=== PATIENT | male | born 1990 | race Caucasian/White ===

== ENCOUNTER 2018-12-23 20:11 | Emergency (ER) | payer SELFPAY ==
[~2018-12-23] VITALS: Ht 170.1 cm; Wt 81.6 kg
== END 2018-12-23 20:50 | disposition home or self-care (01) ==
LOC: ED 20:11
DX: H10.89 Other conjunctivitis (principal); Z88.4 Allergy status to anesthetic agent; Z88.6 Allergy status to analgesic agent; Z88.8 Allergy status to other drugs, medicaments and biological substances

== ENCOUNTER 2019-05-20 18:34 | Emergency (ER) | payer SELFPAY ==
--- NOTE | ~2019-05-20 | EKG ---
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
[2019-05-20 19:46] LABS: BASO % 0.3 % (0.0-1.0); EOS # 0.1 10*3/uL (0.0-0.4); EOS % 0.3 % (1.0-4.0); HEMOGLOBIN 15.9 g/dl (14.0-18.0); LYMPH # 3.2 10*3/uL (1.3-4.4); LYMPH % 21.9 % (27.0-41.0); MEAN CELL VOLUME 89.7 fl (80.0-94.0); MEAN CORPUSCULAR HGB 30.3 pg (27.0-31.0); MEAN CORPUSCULAR HGB CONC 33.8 g/dl (33.0-37.0); MEAN PLATELET VOLUME 10.9 fl (9.6-12.3); MONO % 7.1 % (3.0-9.0); NEUT # 10.2 10*3/uL (2.3-7.9); NEUT % 70.1 % (47.0-73.0); PLATELET COUNT AUTOMATED 252 10*3/uL (130-400); RED BLOOD COUNT 5.24 10*6/uL (4.50-5.90); RED CELL DISTRI WIDTH 12.1 % (0-14.5); WHITE BLOOD COUNT 14.5 10*3/uL (4.8-10.8)
[2019-05-20 19:58] LABS: ACT PARTIAL THROMBO TIME 25.2 SECONDS (20.0-32.1)
[2019-05-20 20:02] LABS: ALBUMIN 3.9 gm/dl (3.1-4.5); ALKALINE PHOSPHATASE 99 U/L (45-117); BUN 12 mg/dl (7-24); CHLORIDE 111 mmol/L (98-107); CREATININE 1.17 mg/dL (0.70-1.30); LIPASE 70 U/L (73-393); POTASSIUM 3.7 mmol/L (3.5-5.1); SGOT/AST 18 IU/L (3-35); SGPT/ALT 36 U/L (12-78); SODIUM 145 mmol/L (136-145); TOTAL PROTEIN 7.2 gm/dL (6.4-8.2)
[2019-05-20 20:05] LABS: TROPONIN I < 0.015 ng/ml (<0.045)
[2019-05-21 00:40] LABS: BILIRUBIN NEGATIVE (NEGATIVE); BLOOD NEGATIVE (NEGATIVE); CLARITY CLEAR (CLEAR); COLOR YELLOW (YELLOW); GLUCOSE NEGATIVE (NEGATIVE); KETONE NEGATIVE (NEGATIVE); LEUKO ESTERASE NEGATIVE (NEGATIVE); NITRITE NEGATIVE (NEGATIVE); UROBILINOGEN 0.2 E.U./dl (0.2-1.0)
[2019-05-21 00:48] LABS: RBC 0-2 rbc/hpf (0-2); WBC 0-2 wbc/hpf (0-5)
[2019-05-21 00:51] LABS: URINE AMPHETAMINES < 1000 (1000ng/ml); URINE BARBITURATES < 200 (200ng/ml); URINE BENZODIAZEPINES < 200 (200ng/ml); URINE CANNABINOIDS (THC) < 50 (50ng/ml); URINE COCAINE < 300 (300ng/ml); URINE METHADONE < 300 (300ng/ml); URINE OPIATES < 300 (300ng/ml)
[2019-05-21 00:52] LABS: URINE PHENCYCLIDINE < 25 (25ng/ml)
== END 2019-05-21 01:20 | disposition home or self-care (01) ==
LOC: ED 18:34
PROVIDERS: Nurse Practitioner Family
DX: R55 Syncope and collapse (principal); F41.9 Anxiety disorder, unspecified; Z88.8 Allergy status to other drugs, medicaments and biological substances

== ENCOUNTER 2019-05-30 23:16 | Emergency (ER) | payer SELFPAY ==
[~2019-05-30] VITALS: Ht 170.1 cm; Wt 81.6 kg
[2019-05-31] MEDS ORDERED: Motrin,Rufen400 MG PO (00:31)
== END 2019-05-31 00:39 | disposition home or self-care (01) ==
LOC: ED 23:16
DX: I80.02 Phlebitis and thrombophlebitis of superficial vessels of left lower extremity (principal); Z88.8 Allergy status to other drugs, medicaments and biological substances; Z88.6 Allergy status to analgesic agent

== ENCOUNTER → 2019-05-31 | Outpatient (CLI) | payer SELFPAY ==
[~2019-05-31] MED LIST: Motrin,Rufen400 MG PO; Motrin,Rufen800 MG PO
== END | disposition home or self-care (01) ==
LOC: US 14:24
DX: I80.8 Phlebitis and thrombophlebitis of other sites (principal); M79.622 Pain in left upper arm

== ENCOUNTER 2019-06-12 12:32 | Emergency (ER) | payer SELFPAY ==
[~2019-06-12] VITALS: Ht 175.2 cm; Wt 72.6 kg
--- NOTE | ~2019-06-12 | EKG ---
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
[~2019-06-12 12:32] MED LIST changes: -Motrin,Rufen800 MG PO
[2019-06-12 13:01] LABS: BASO % 0.5 % (0.0-1.0); EOS % 0.5 % (1.0-4.0); HEMOGLOBIN 15.7 g/dl (14.0-18.0); LYMPH # 2.8 10*3/uL (1.3-4.4); LYMPH % 37.8 % (27.0-41.0); MEAN CELL VOLUME 88.3 fl (80.0-94.0); MEAN CORPUSCULAR HGB 30.1 pg (27.0-31.0); MEAN CORPUSCULAR HGB CONC 34.1 g/dl (33.0-37.0); MEAN PLATELET VOLUME 10.9 fl (9.6-12.3); MONO # 0.5 10*3/uL (0.1-1.0); MONO % 7.3 % (3.0-9.0); NEUT # 3.9 10*3/uL (2.3-7.9); NEUT % 53.6 % (47.0-73.0); PLATELET COUNT AUTOMATED 253 10*3/uL (130-400); RED BLOOD COUNT 5.21 10*6/uL (4.50-5.90); RED CELL DISTRI WIDTH 12.3 % (0-14.5); WHITE BLOOD COUNT 7.3 10*3/uL (4.8-10.8)
[2019-06-12 13:17] LABS: ALBUMIN 3.9 gm/dl (3.1-4.5); ALKALINE PHOSPHATASE 100 U/L (45-117); BUN 9 mg/dl (7-24); CHLORIDE 110 mmol/L (98-107); LIPASE 96 U/L (73-393); POTASSIUM 3.3 mmol/L (3.5-5.1); SGOT/AST 18 IU/L (3-35); SGPT/ALT 39 U/L (12-78); SODIUM 140 mmol/L (136-145); TOTAL PROTEIN 7.4 gm/dL (6.4-8.2); TROPONIN I < 0.015 ng/ml (<0.045)
[2019-06-12 13:25] LABS: ACT PARTIAL THROMBO TIME 26.3 SECONDS (20.0-32.1); INTERNATIONAL NORM RATIO 0.9 (2.0-3.5)
[2019-06-12 17:19] LABS: BILIRUBIN NEGATIVE (NEGATIVE); BLOOD NEGATIVE (NEGATIVE); CLARITY CLEAR (CLEAR); COLOR YELLOW (YELLOW); GLUCOSE NEGATIVE (NEGATIVE); KETONE NEGATIVE (NEGATIVE); LEUKO ESTERASE NEGATIVE (NEGATIVE); NITRITE NEGATIVE (NEGATIVE); SPECIFIC GRAVITY <= 1.005 (1.005-1.030); UROBILINOGEN 0.2 E.U./dl (0.2-1.0)
[2019-06-12 17:28] LABS: URINE AMPHETAMINES < 1000 (1000ng/ml); URINE BARBITURATES < 200 (200ng/ml); URINE BENZODIAZEPINES < 200 (200ng/ml); URINE CANNABINOIDS (THC) < 50 (50ng/ml); URINE COCAINE < 300 (300ng/ml); URINE METHADONE < 300 (300ng/ml); URINE OPIATES < 300 (300ng/ml)
[2019-06-12 17:31] LABS: URINE PHENCYCLIDINE < 25 (25ng/ml)
== END 2019-06-12 19:05 | disposition home or self-care (01) ==
LOC: ED 12:32
PROVIDERS: Emergency Medicine
DX: R55 Syncope and collapse (principal); R07.89 Other chest pain; R53.83 Other fatigue; R68.83 Chills (without fever); Z88.8 Allergy status to other drugs, medicaments and biological substances; Z88.6 Allergy status to analgesic agent

== ENCOUNTER 2019-08-02 09:54 | Emergency (ER) | payer SELFPAY ==
[~2019-08-02] VITALS: Wt 77.1 kg
--- NOTE | ~2019-08-02 | EKG ---
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
[2019-08-02 10:28] LABS: BASO % 0.3 % (0.0-1.0); EOS # 0.1 10*3/uL (0.0-0.4); EOS % 1.1 % (1.0-4.0); HEMOGLOBIN 15.3 g/dl (14.0-18.0); LYMPH % 19.2 % (27.0-41.0); MEAN CELL VOLUME 89.1 fl (80.0-94.0); MEAN CORPUSCULAR HGB 30.3 pg (27.0-31.0); MEAN PLATELET VOLUME 10.8 fl (9.6-12.3); MONO # 0.8 10*3/uL (0.1-1.0); MONO % 7.4 % (3.0-9.0); NEUT # 7.6 10*3/uL (2.3-7.9); NEUT % 71.7 % (47.0-73.0); PLATELET COUNT AUTOMATED 248 10*3/uL (130-400); RED BLOOD COUNT 5.05 10*6/uL (4.50-5.90); RED CELL DISTRI WIDTH 12.4 % (0-14.5); WHITE BLOOD COUNT 10.6 10*3/uL (4.8-10.8)
[2019-08-02 10:45] LABS: ALBUMIN 3.8 gm/dl (3.1-4.5); ALKALINE PHOSPHATASE 101 U/L (45-117); BUN 11 mg/dl (7-24); CHLORIDE 108 mmol/L (98-107); POTASSIUM 3.7 mmol/L (3.5-5.1); SGOT/AST 15 IU/L (3-35); SGPT/ALT 30 U/L (12-78); SODIUM 139 mmol/L (136-145)
[2019-08-02 10:46] LABS: TROPONIN I < 0.015 ng/ml (<0.045)
[2019-08-02] MEDS ORDERED: Motrin,Rufen800 MG PO (11:02)
== END 2019-08-02 11:21 | disposition home or self-care (01) ==
LOC: ED 09:54
PROVIDERS: Emergency Medicine
DX: J02.8 Acute pharyngitis due to other specified organisms (principal); B97.89 Other viral agents as the cause of diseases classified elsewhere; R21 Rash and other nonspecific skin eruption

== ENCOUNTER 2019-12-17 17:44 | Emergency (ER) | payer SELFPAY ==
[~2019-12-17] VITALS: Ht 170.1 cm; Wt 79.4 kg
[~2019-12-17 17:44] MED LIST changes: +Motrin,Rufen800 MG PO
[2019-12-17] MEDS ORDERED: CYCLOBENZAPRINE5 M3 PO (21:21)
[2019-12-17] MEDS ORDERED: Motrin,Rufen800 MG PO (21:21)
== END 2019-12-17 21:43 | disposition home or self-care (01) ==
LOC: ED 17:44
DX: S39.012A Strain of muscle, fascia and tendon of lower back, initial encounter (principal); Z88.8 Allergy status to other drugs, medicaments and biological substances; W01.0XXA Fall on same level from slipping, tripping and stumbling without subsequent striking against object, initial encounter; Y93.89 Activity, other specified; Y92.69 Other specified industrial and construction area as the place of occurrence of the external cause; Y99.8 Other external cause status

== ENCOUNTER 2019-12-31 19:19 | Emergency (ER) | payer SELFPAY ==
[~2019-12-31] VITALS: Ht 182.8 cm; Wt 82.1 kg
[~2019-12-31 19:19] MED LIST changes: +CYCLOBENZAPRINE5 M3 PO
[2019-12-31 19:54] LABS: BASO % 0.3 % (0.0-1.0); EOS # 0.1 10*3/uL (0.0-0.4); HEMATOCRIT 43.9 % (42.0-52.0); HEMOGLOBIN 14.9 g/dl (14.0-18.0); LYMPH # 1.9 10*3/uL (1.3-4.4); LYMPH % 31.7 % (27.0-41.0); MEAN CELL VOLUME 89.6 fl (80.0-94.0); MEAN CORPUSCULAR HGB 30.4 pg (27.0-31.0); MEAN CORPUSCULAR HGB CONC 33.9 g/dl (33.0-37.0); MEAN PLATELET VOLUME 10.6 fl (9.6-12.3); MONO # 0.4 10*3/uL (0.1-1.0); MONO % 5.9 % (3.0-9.0); NEUT # 3.7 10*3/uL (2.3-7.9); NEUT % 60.8 % (47.0-73.0); PLATELET COUNT AUTOMATED 243 10*3/uL (130-400); RED CELL DISTRI WIDTH 12.3 % (0-14.5); WHITE BLOOD COUNT 6.1 10*3/uL (4.8-10.8)
[2019-12-31 20:10] LABS: ALBUMIN 3.7 gm/dl (3.1-4.5); ALKALINE PHOSPHATASE 92 U/L (45-117); BUN 13 mg/dl (7-24); CHLORIDE 110 mmol/L (98-107); CREATININE 0.82 mg/dL (0.70-1.30); POTASSIUM 3.3 mmol/L (3.5-5.1); SGOT/AST 12 IU/L (3-35); SGPT/ALT 34 U/L (12-78); SODIUM 142 mmol/L (136-145); TOTAL PROTEIN 6.7 gm/dL (6.4-8.2)
== END 2019-12-31 22:13 | disposition home or self-care (01) ==
LOC: ED 19:19
PROVIDERS: Emergency Medicine Emergency Medical Services
DX: S00.03XA Contusion of scalp, initial encounter (principal); R56.9 Unspecified convulsions; Z88.8 Allergy status to other drugs, medicaments and biological substances; Z79.899 Other long term (current) drug therapy; W18.39XA Other fall on same level, initial encounter; Y93.89 Activity, other specified; Y92.69 Other specified industrial and construction area as the place of occurrence of the external cause; Y99.8 Other external cause status

== ENCOUNTER 2020-01-20 18:13 | Emergency (ER) | payer SELFPAY ==
[~2020-01-20] VITALS: Ht 172.7 cm
== END 2020-01-20 20:29 | disposition home or self-care (01) ==
LOC: ED 18:13
DX: S00.81XA Abrasion of other part of head, initial encounter (principal); Z88.8 Allergy status to other drugs, medicaments and biological substances; W18.39XA Other fall on same level, initial encounter; Y93.89 Activity, other specified; Y92.89 Other specified places as the place of occurrence of the external cause; Y99.8 Other external cause status

== ENCOUNTER 2020-09-27 20:49 | Emergency (ER) | payer OTHER ==
[~2020-09-27] VITALS: Ht 170.2 cm; Wt 81.6 kg
== END 2020-09-27 23:45 | disposition home or self-care (01) ==
LOC: ED 20:49
DX: S43.422A Sprain of left rotator cuff capsule, initial encounter (principal); Z88.8 Allergy status to other drugs, medicaments and biological substances; Z79.899 Other long term (current) drug therapy; X58.XXXA Exposure to other specified factors, initial encounter; Y93.89 Activity, other specified; Y92.89 Other specified places as the place of occurrence of the external cause; Y99.8 Other external cause status

== ENCOUNTER 2021-01-18 01:38 | Emergency (ER) | payer OTHER ==
[~2021-01-18] VITALS: Ht 170.1 cm; Wt 83.9 kg
[2021-01-18 02:15] LABS: BASO # 0.1 10*3/uL (0.0-0.1); BASO % 0.3 % (0.0-1.0); EOS # 0.1 10*3/uL (0.0-0.4); EOS % 0.3 % (1.0-4.0); LYMPH # 0.7 10*3/uL (1.3-4.4); LYMPH % 4.4 % (27.0-41.0); MEAN CELL VOLUME 87.7 fl (80.0-94.0); MEAN CORPUSCULAR HGB 29.7 pg (27.0-31.0); MEAN CORPUSCULAR HGB CONC 33.8 g/dl (33.0-37.0); MEAN PLATELET VOLUME 10.3 fl (9.6-12.3); MONO # 0.9 10*3/uL (0.1-1.0); MONO % 5.9 % (3.0-9.0); NEUT # 13.4 10*3/uL (2.3-7.9); NEUT % 88.8 % (47.0-73.0); PLATELET COUNT AUTOMATED 249 10*3/uL (130-400); RED BLOOD COUNT 5.36 10*6/uL (4.50-5.90); RED CELL DISTRI WIDTH 12.3 % (0-14.5)
[2021-01-18 02:30] LABS: ALBUMIN 3.6 gm/dl (3.1-4.5); ALKALINE PHOSPHATASE 88 U/L (45-117); BUN 14 mg/dl (7-24); CHLORIDE 110 mmol/L (98-107); LIPASE 51 U/L (73-393); POTASSIUM 3.9 mmol/L (3.5-5.1); SGOT/AST 11 IU/L (3-35); SGPT/ALT 37 U/L (12-78); SODIUM 140 mmol/L (136-145); TOTAL PROTEIN 7.1 gm/dL (6.4-8.2)
[2021-01-18] MEDS ORDERED: ZOFRAN4 MG PO (03:07)
== END 2021-01-18 03:23 | disposition home or self-care (01) ==
LOC: ED 01:38
PROVIDERS: Internal Medicine
DX: B34.9 Viral infection, unspecified (principal); Z88.8 Allergy status to other drugs, medicaments and biological substances; Z79.899 Other long term (current) drug therapy; Z20.822 Contact with and (suspected) exposure to COVID-19

== ENCOUNTER 2021-03-10 17:12 | Emergency (ER) | payer OTHER ==
[~2021-03-10] VITALS: Ht 170.1 cm; Wt 83.9 kg
[~2021-03-10 17:12] MED LIST changes: +ZOFRAN4 MG PO
== END 2021-03-10 19:11 | disposition home or self-care (01) ==
LOC: ED 17:12
DX: S92.531A Displaced fracture of distal phalanx of right lesser toe(s), initial encounter for closed fracture (principal); Z88.8 Allergy status to other drugs, medicaments and biological substances; Z79.899 Other long term (current) drug therapy; W22.09XA Striking against other stationary object, initial encounter; Y93.89 Activity, other specified; Y92.89 Other specified places as the place of occurrence of the external cause; Y99.8 Other external cause status

== ENCOUNTER 2021-04-30 21:22 | Emergency (ER) | payer OTHER ==
[~2021-04-30] VITALS: Ht 170.1 cm; Wt 83.9 kg
[2021-04-30] MEDS ORDERED: MEDROL DOSEPAK4 MG PO (21:58)
== END 2021-04-30 22:18 | disposition home or self-care (01) ==
LOC: ED 21:22
DX: L23.9 Allergic contact dermatitis, unspecified cause (principal); Z88.8 Allergy status to other drugs, medicaments and biological substances; Z79.899 Other long term (current) drug therapy

== ENCOUNTER 2021-05-16 19:11 | Emergency (ER) | payer OTHER ==
[~2021-05-16] VITALS: Wt 83.9 kg
[~2021-05-16 19:11] MED LIST changes: +MEDROL DOSEPAK4 MG PO
== END 2021-05-16 22:04 | disposition home or self-care (01) ==
LOC: ED 19:11
DX: R51.9 Headache, unspecified (principal); Z88.8 Allergy status to other drugs, medicaments and biological substances; Z79.899 Other long term (current) drug therapy

== ENCOUNTER 2021-09-02 21:26 | Emergency (ER) | payer OTHER ==
[~2021-09-02] VITALS: Ht 170.1 cm; Wt 88.5 kg
[2021-09-02] MEDS ORDERED: AMITRIPTYLINE25 MG PO (21:40)
[2021-09-02] MEDS ORDERED: LEXAPRO5 M1 PO (21:40)
== END 2021-09-03 05:28 | disposition home or self-care (01) ==
LOC: ED 21:26
DX: U07.1 COVID-19 (principal)

== ENCOUNTER 2021-09-05 12:22 | Emergency (ER) | payer OTHER ==
[~2021-09-05] VITALS: Ht 172.7 cm; Wt 77.1 kg
[~2021-09-05 12:22] MED LIST changes: +AMITRIPTYLINE25 MG PO; +LEXAPRO5 M1 PO
[2021-09-05 13:26] LABS: BASO % 0.1 % (0.0-1.0); EOS % 0.4 % (1.0-4.0); HEMATOCRIT 45.2 % (42.0-52.0); LYMPH # 1.3 10*3/uL (1.3-4.4); LYMPH % 19.3 % (27.0-41.0); MEAN CELL VOLUME 87.1 fl (80.0-94.0); MEAN CORPUSCULAR HGB 29.5 pg (27.0-31.0); MEAN CORPUSCULAR HGB CONC 33.8 g/dl (33.0-37.0); MEAN PLATELET VOLUME 10.2 fl (9.6-12.3); MONO # 0.8 10*3/uL (0.1-1.0); MONO % 11.4 % (3.0-9.0); NEUT # 4.7 10*3/uL (2.3-7.9); NEUT % 68.5 % (47.0-73.0); PLATELET COUNT AUTOMATED 226 10*3/uL (130-400); RED BLOOD COUNT 5.19 10*6/uL (4.50-5.90); RED CELL DISTRI WIDTH 12.3 % (0-14.5); WHITE BLOOD COUNT 6.9 10*3/uL (4.8-10.8)
[2021-09-05 13:41] LABS: ALBUMIN 3.6 gm/dl (3.1-4.5); ALKALINE PHOSPHATASE 88 U/L (45-117); BUN 12 mg/dl (7-24); CHLORIDE 104 mmol/L (98-107); CREATININE 1.09 mg/dL (0.70-1.30); POTASSIUM 3.3 mmol/L (3.5-5.1); SGOT/AST 20 IU/L (3-35); SGPT/ALT 49 U/L (12-78); SODIUM 137 mmol/L (136-145); TOTAL PROTEIN 7.1 gm/dL (6.4-8.2)
[2021-09-05 15:30] LABS: BILIRUBIN Negative (Negative); BLOOD Negative (Negative); CLARITY Clear (Clear); COLOR Yellow (Yellow); GLUCOSE Negative (Negative); KETONE 3+ (Negative); LEUKO ESTERASE Negative (Negative); NITRITE Negative (Negative); PH 6.5 (4.5-8.0)
[2021-09-05 15:43] LABS: BACTERIA TRACE; EPITHELIAL CELLS 0-2; RBC 0-2 rbc/hpf (0-2); WBC 0-2 wbc/hpf (0-5)
== END 2021-09-05 17:31 | disposition home or self-care (01) ==
LOC: ED 12:22
PROVIDERS: Physician Assistant
DX: M54.50 Low back pain, unspecified (principal); Z79.899 Other long term (current) drug therapy

== ENCOUNTER 2022-02-28 18:33 | Emergency (ER) | payer OTHER ==
[~2022-02-28] VITALS: Ht 170.1 cm; Wt 86.2 kg
== END 2022-02-28 23:03 | disposition home or self-care (01) ==
LOC: ED 18:33
DX: S90.31XA Contusion of right foot, initial encounter (principal); S97.81XA Crushing injury of right foot, initial encounter; Z88.8 Allergy status to other drugs, medicaments and biological substances; Z79.899 Other long term (current) drug therapy; W11.XXXA Fall on and from ladder, initial encounter; Y93.89 Activity, other specified; Y92.89 Other specified places as the place of occurrence of the external cause; Y99.8 Other external cause status

== ENCOUNTER → 2022-05-26 | Outpatient (CLI) | payer OTHER | END | disposition home or self-care (01) | LOC: COVID19 08:23 | PROVIDERS: ATTEND Internal Medicine | DX: U07.1 COVID-19 (principal) ==

== ENCOUNTER 2023-02-04 19:01 | Emergency (ER) | payer OTHER ==
[~2023-02-04] VITALS: Ht 170.1 cm; Wt 88.5 kg
[2023-02-04] MEDS ORDERED: LISINOPRIL5 MG PO (19:21)
[2023-02-04 19:47] LABS: BASO # 0.1 10*3/uL (0.0-0.1); BASO % 0.3 % (0.0-1.0); EOS % 0.2 % (1.0-4.0); HEMATOCRIT 46.1 % (42.0-52.0); LYMPH # 1.8 10*3/uL (1.3-4.4); LYMPH % 12.8 % (27.0-41.0); MEAN CORPUSCULAR HGB 29.8 pg (27.0-31.0); MEAN CORPUSCULAR HGB CONC 34.3 g/dl (33.0-37.0); MEAN PLATELET VOLUME 10.3 fl (9.6-12.3); MONO # 0.9 10*3/uL (0.1-1.0); MONO % 5.9 % (3.0-9.0); NEUT # 11.6 10*3/uL (2.3-7.9); NEUT % 80.5 % (47.0-73.0); PLATELET COUNT AUTOMATED 264 10*3/uL (130-400); RED CELL DISTRI WIDTH 12.2 % (0-14.5); WHITE BLOOD COUNT 14.4 10*3/uL (4.8-10.8)
[2023-02-04 20:04] LABS: ALKALINE PHOSPHATASE 91 U/L (46-116); BUN 11 mg/dl (9-23); CHLORIDE 103 mmol/L (98-107); POTASSIUM 3.4 mmol/L (3.4-5.1); SGPT/ALT 39 U/L (10-49); THYROID STIM HORMONE (HS) 1.901 uIU/ml (0.550-4.780)
[2023-02-04] MEDS ORDERED: Meclizine25 MG PO (20:18)
== END 2023-02-04 20:54 | disposition home or self-care (01) ==
LOC: ED 19:01
PROVIDERS: Emergency Medicine
DX: B34.9 Viral infection, unspecified (principal); R55 Syncope and collapse; Z88.8 Allergy status to other drugs, medicaments and biological substances; Z79.899 Other long term (current) drug therapy

== ENCOUNTER 2023-11-15 23:09 | Emergency (ER) | payer OTHER ==
[~2023-11-15] VITALS: Ht 170.1 cm; Wt 90.7 kg
[~2023-11-15 23:09] MED LIST changes: +LISINOPRIL5 MG PO; +Meclizine25 MG PO
== END 2023-11-16 00:59 | disposition home or self-care (01) ==
LOC: ED 23:09
DX: U07.1 COVID-19 (principal); Z88.8 Allergy status to other drugs, medicaments and biological substances; Z88.6 Allergy status to analgesic agent

== ENCOUNTER 2024-02-03 21:31 | Emergency (ER) | payer OTHER ==
[2024-02-03] MEDS ORDERED: Dexamethasone Sodium Phospha 20 MG/5 ML VIAL IM ONE (22:35)
[2024-02-03 22:59] LABS: BASO % 0.4 % (0.0-1.0); EOS # 0.1 10*3/uL (0.0-0.4); HEMATOCRIT 44.4 % (42.0-52.0); LYMPH # 3.5 10*3/uL (1.3-4.4); LYMPH % 35.4 % (27.0-41.0); MEAN CELL VOLUME 88.8 fl (80.0-94.0); MEAN CORPUSCULAR HGB 29.8 pg (27.0-31.0); MEAN CORPUSCULAR HGB CONC 33.6 g/dl (33.0-37.0); MEAN PLATELET VOLUME 10.3 fl (9.6-12.3); MONO # 0.8 10*3/uL (0.1-1.0); MONO % 7.8 % (3.0-9.0); NEUT # 5.5 10*3/uL (2.3-7.9); NEUT % 55.3 % (47.0-73.0); PLATELET COUNT AUTOMATED 257 10*3/uL (130-400); RED CELL DISTRI WIDTH 12.5 % (0-14.5); WHITE BLOOD COUNT 9.9 10*3/uL (4.8-10.8)
[2024-02-03 23:24] LABS: BUN 12 mg/dl (9-23); CHLORIDE 106 mmol/L (98-107); LIPASE 35 U/L (12-53); POTASSIUM 3.6 mmol/L (3.4-5.1)
[2024-02-04] MEDS ORDERED: PREDNISONE50 MG PO (00:28)
== END 2024-02-04 00:35 | disposition home or self-care (01) ==
LOC: ED 21:31
PROVIDERS: Internal Medicine
DX: S29.011A Strain of muscle and tendon of front wall of thorax, initial encounter (principal); M25.512 Pain in left shoulder; R42 Dizziness and giddiness; R51.9 Headache, unspecified; M54.9 Dorsalgia, unspecified; Z88.8 Allergy status to other drugs, medicaments and biological substances; Z79.899 Other long term (current) drug therapy; X58.XXXA Exposure to other specified factors, initial encounter; Y93.89 Activity, other specified; Y92.89 Other specified places as the place of occurrence of the external cause; Y99.8 Other external cause status

== ENCOUNTER 2024-05-29 23:45 | Emergency (ER) | payer SELFPAY ==
[~2024-05-29] VITALS: Ht 170.1 cm; Wt 90.7 kg
[~2024-05-29 23:45] MED LIST changes: +PREDNISONE50 MG PO
[2024-05-29] MEDS ORDERED: methylPREDNISolone sod succ 125 MG VIAL IV ONE (23:55)
[2024-05-30 00:10] LABS: BASO % 0.3 % (0.0-1.0); EOS # 0.1 10*3/uL (0.0-0.4); EOS % 0.9 % (1.0-4.0); HEMATOCRIT 44.8 % (42.0-52.0); LYMPH # 2.5 10*3/uL (1.3-4.4); LYMPH % 21.2 % (27.0-41.0); MEAN CELL VOLUME 89.1 fl (80.0-94.0); MEAN CORPUSCULAR HGB CONC 33.7 g/dl (33.0-37.0); MEAN PLATELET VOLUME 10.6 fl (9.6-12.3); MONO # 0.8 10*3/uL (0.1-1.0); MONO % 6.8 % (3.0-9.0); NEUT # 8.2 10*3/uL (2.3-7.9); NEUT % 70.5 % (47.0-73.0); PLATELET COUNT AUTOMATED 248 10*3/uL (130-400); RED BLOOD COUNT 5.03 10*6/uL (4.50-5.90); RED CELL DISTRI WIDTH 12.4 % (0-14.5); WHITE BLOOD COUNT 11.7 10*3/uL (4.8-10.8)
== END 2024-05-30 01:29 | disposition home or self-care (01) ==
LOC: ED 23:45
PROVIDERS: Internal Medicine
DX: J02.9 Acute pharyngitis, unspecified (principal); Z88.8 Allergy status to other drugs, medicaments and biological substances; Z79.899 Other long term (current) drug therapy

== ENCOUNTER 2024-10-03 21:17 | Emergency (ER) | payer SELFPAY ==
[~2024-10-03] VITALS: Ht 170.1 cm; Wt 90.7 kg
== END 2024-10-03 21:45 | disposition home or self-care (01) ==
LOC: ED 21:17
DX: J02.9 Acute pharyngitis, unspecified (principal); F41.9 Anxiety disorder, unspecified; F32.A Depression, unspecified; Z88.6 Allergy status to analgesic agent; Z88.8 Allergy status to other drugs, medicaments and biological substances

== ENCOUNTER 2025-01-06 18:42 | Emergency (ER) | payer BC ==
[~2025-01-06] VITALS: Ht 170.1 cm; Wt 90.7 kg
[2025-01-06] MEDS ORDERED: TAMIFLU 75MG CA75 MG PO (19:32)
[2025-01-06] MEDS ORDERED: Oseltamivir Phosphate 75 MG CAP PO ONE (19:35)
[2025-01-06] MEDS ORDERED: Oseltamivir Phosphate 30 MG CAP PO ONE (19:40)
== END 2025-01-06 19:39 | disposition home or self-care (01) ==
LOC: ED 18:42
DX: J10.1 Influenza due to other identified influenza virus with other respiratory manifestations (principal); Z20.822 Contact with and (suspected) exposure to COVID-19; R42 Dizziness and giddiness; R53.1 Weakness; Z88.8 Allergy status to other drugs, medicaments and biological substances